=== PATIENT | female | born 1985 | race Hispanic/Latino ===

== ENCOUNTER → 2017-12-19 08:42 | Outpatient (CLI) | payer OTHER, SELFPAY ==
[2017-12-19 11:11] LABS: AST(SGOT) 18 U/L (15-37); Alanine Aminotransfer ALT/SGPT 23 U/L (13-56); Cholesterol 210 mg/dL (200); High Density Lipoprotein 62 mg/dL; Triglycerides 120 mg/dL; Very Low Density Lipoprotein 24 mg/dL (5-40)
[2017-12-20 07:11] LABS: HCG BETA-SUBUNIT QUANT. < 1 mIU/mL (.); LDL, Direct 120295 117 mg/dL (0-99)
== END ==
PROVIDERS: Family Provider Internal Medicine; PCP Internal Medicine; Visit Provider Dermatology
DX: L70.0 Acne vulgaris (principal); L23.3 Allergic contact dermatitis due to drugs in contact with skin; Z79.899 Other long term (current) drug therapy
CPT/HCPCS: 36415; 80061; 83721; 84450; 84460; 84702

== ENCOUNTER → 2018-05-17 12:38 | Outpatient (CLI) | payer OTHER, SELFPAY ==
--- NOTE | 2018-05-17 12:40 | RAD_ITS ---
STUDY: X-RAY - RIGHT ELBOW REASON FOR EXAM: Female, 33 years old. Wound of the proximal forearm after falling. TECHNIQUE: 3 view(s) of the elbow. COMPARISON: None. FINDINGS: Normal visualized humerus, radius and ulna. Normal radiocapitellar and ulnotrochlear articulations. Negative for foreign body. RAD/Elbow min 3 Views IMPRESSION: Soft tissue injury without underlying fracture, dislocation or foreign body. Electronically Signed: Ml Skinner MD at 23:18 EDT , Service support ,
== END ==
PROVIDERS: Family Provider Internal Medicine; PCP Internal Medicine; Visit Provider Physician Assistant
DX: S51.001A Unspecified open wound of right elbow, initial encounter (principal)
CPT/HCPCS: 73080